=== PATIENT | female | born 1965 | race Caucasian/White ===

== ENCOUNTER 2017-04-11 22:31 | Emergency (ER) | payer MEDICARE ==
[2017-04-11 23:17] LABS: HEMOGLOBIN 13.5 gm/dl (12.3-15.3); RED BLOOD COUNT 4.39 M/UL (4.00-5.10); WHITE BLOOD COUNT 12.4 K/UL (4.5-11.0)
[2017-04-11 23:40] LABS: BUN/CREATININE RATIO 11 (0-10)
== END 2017-04-12 09:18 | disposition home or self-care (01) ==
LOC: ER1 22:31
PROVIDERS: Emergency Medicine
DX: S86.911A Strain of unspecified muscle(s) and tendon(s) at lower leg level, right leg, initial encounter (principal); X58.XXXA Exposure to other specified factors, initial encounter; M79.661 Pain in right lower leg
CPT/HCPCS: 36415; 80048; 85025; 85379; 85610; 85730; 99283